=== PATIENT | female | born 1990 | race Caucasian/White ===

== ENCOUNTER → 2018-01-08 | Outpatient (CLI) | payer OTHER ==
[~2018-01-08] MED LIST: AMOCLA500 PO; AMOX500 PO; CODACE30 PO; HYDACE5 PO; RXCODACET PO; RXHYDACE PO
[2018-01-09 10:30] LABS: Source Vaginal/Cervical
== END | disposition home or self-care (01) ==
LOC: LAB 16:33 → LAB SHORT 16:33
PROVIDERS: Obstetrics & Gynecology
DX: Z36.89 Encounter for other specified antenatal screening (principal)
CPT/HCPCS: 87491; 87591; G0123

== ENCOUNTER → 2018-05-08 | Outpatient (CLI) | payer OTHER ==
[2018-05-08 17:13] LABS: Source, Urine Clean Catch
[2018-05-08 18:09] LABS: Bilirubin, Urine Neg (Neg); Blood, Urine Neg (Neg); Glucose Qualitative, Urine Neg (Neg); Ketones, Urine Neg (Neg); Leukocyte Esterase, Urine 1+ (Neg); Nitrite, Urine Pos (Neg); Protein, Urine Neg (Neg); Specific Gravity, Urine 1.005 (1.003-1.022); Urobilinogen, Urine NORM (Normal)
[2018-05-08 18:17] LABS: Appearance, Urine Clear (Clear); Color, Urine Yellow (P-Yellow)
[2018-05-08 18:18] LABS: Bacteria Few /hpf; Red Blood Cells, Urine 0-2 /hpf (0-2); Squamous Epithelial Cells Mod /hpf (Few)
== END | disposition home or self-care (01) ==
LOC: LAB SHORT 16:53 → LAB 16:53
PROVIDERS: Obstetrics & Gynecology
DX: R82.99 Other abnormal findings in urine (principal)
CPT/HCPCS: 81001; 87086

== ENCOUNTER → 2018-05-14 | Outpatient (CLI) | payer OTHER ==
[2018-05-14 11:35] LABS: Source, Urine Clean Catch
[2018-05-14 13:06] LABS: Appearance, Urine Clear (Clear); Bilirubin, Urine Neg (Neg); Blood, Urine Neg (Neg); Color, Urine Yellow (P-Yellow); Glucose Qualitative, Urine Neg (Neg); Ketones, Urine Neg (Neg); Leukocyte Esterase, Urine 1+ (Neg); Nitrite, Urine Pos (Neg); Protein, Urine Neg (Neg); Specific Gravity, Urine 1.005 (1.003-1.022); Urobilinogen, Urine NORM (Normal)
[2018-05-14 13:22] LABS: Bacteria Few /hpf; Red Blood Cells, Urine Not Seen /hpf (0-2); Squamous Epithelial Cells Few /hpf (Few)
== END ==
LOC: LAB SHORT 11:33 → LAB 11:33
PROVIDERS: Obstetrics & Gynecology
DX: R82.99 Other abnormal findings in urine (principal)
CPT/HCPCS: 81001; 87086

== ENCOUNTER 2018-06-15 04:58 | Observation (INO) | payer OTHER ==
[~2018-06-15] VITALS: Ht 157.5 cm; Wt 99.8 kg
[2018-06-15 05:38] LABS: BASOPHILS ABSOLUTE AUTO 0.03 K/mm3 (0.00-0.23); BASOPHILS PERCENT AUTO 0 % (0-2); EOSINOPHILS ABSOLUTE AUTO 0.13 K/mm3 (0.00-0.68); EOSINOPHILS PERCENT AUTO 1 % (0-6); Hematocrit 34.2 % (33.0-51.0); Hemoglobin 11.3 g/dL (11.5-16.0); IMMATURE GRAN ABSOLUTE AUTO 0.06 K/mm3 (0.00-0.10); IMMATURE GRAN PERCENT AUTO 1 % (0-1); LYMPHOCYTES PERCENT AUTO 22 % (21-46); MONOCYTES ABSOLUTE AUTO 0.91 K/mm3 (0.16-1.47); MONOCYTES PERCENT AUTO 7 % (4-13); Mean Corpuscular HGB 28.8 pg (26.0-34.0); Mean Corpuscular Volume 87 fL (80-100); Mean Platelet Volume 9.8 fL (9.1-12.4); NEUTROPHILS ABSOLUTE AUTO 8.71 K/mm3 (1.96-9.15); NEUTROPHILS PERCENT AUTO 70 % (41-73); Platelet Count 374 K/mm3 (150-400); RDW Coefficient Variation 13.5 % (11.7-14.2); RDW Standard Deviation 42.6 fL (35.1-46.3); Red Blood Cell Count 3.93 M/mm3 (3.80-5.20); White Blood Cell Count 12.54 K/mm3 (4.00-11.30)
[2018-06-15 05:58] LABS: Alanine Aminotransfer (ALT/SGP 20 U/L (12-78); Albumin, Blood 2.7 g/dL (3.4-5.0); Albumin/Globulin Ratio 0.6 (0.8-1.8); Alk Phos 152 U/L (50-136); Amylase, Blood 47 U/L (25-115); Anion Gap 10 mmol/L (6-16); Aspartate Aminotrans (AST/SGOT 15 U/L (12-37); Bilirubin, Total 0.3 mg/dL (0.1-1.0); Blood Urea Nitrogen 4 mg/dL (8-24); Bun/Creatinine Ratio 6.4 (12.0-20.0); CO2, Blood 22 mmol/L (21-32); Calcium, Blood 9.2 mg/dL (8.5-10.1); Chloride, Blood 109 mmol/L (98-108); Creatinine, Blood 0.62 mg/dL (0.40-1.00); Globulin, Blood 4.2 g/dL (2.2-4.0); Glomerular Filtration Rate >60 (60-); Glucose, Blood 86 mg/dL (70-99); Potassium, Blood 3.4 mmol/L (3.5-5.5); Sodium, Blood 141 mmol/L (136-145); Total Protein, Blood 6.9 g/dL (6.4-8.2); Uric Acid, Blood 3.9 mg/dL (2.6-6.0)
[2018-06-15] MEDS ORDERED: METF500C PO (10:08)
[2018-06-15] MEDS ORDERED: BUSP5 PO (11:15)
[2018-06-15] MEDS ORDERED: EXPECTA PRENAT1 EACH PO (11:16)
[2018-06-15 19:05] LABS: Amylase, Blood 42 U/L (25-115)
[2018-06-16 06:13] LABS: BASOPHILS ABSOLUTE AUTO 0.02 K/mm3 (0.00-0.23); BASOPHILS PERCENT AUTO 0 % (0-2); EOSINOPHILS ABSOLUTE AUTO 0.06 K/mm3 (0.00-0.68); EOSINOPHILS PERCENT AUTO 1 % (0-6); Hematocrit 29.8 % (33.0-51.0); Hemoglobin 9.6 g/dL (11.5-16.0); IMMATURE GRAN ABSOLUTE AUTO 0.03 K/mm3 (0.00-0.10); IMMATURE GRAN PERCENT AUTO 0 % (0-1); LYMPHOCYTES ABSOLUTE AUTO 1.75 K/mm3 (0.84-5.20); LYMPHOCYTES PERCENT AUTO 17 % (21-46); MONOCYTES ABSOLUTE AUTO 0.69 K/mm3 (0.16-1.47); MONOCYTES PERCENT AUTO 7 % (4-13); Mean Corpuscular HGB 28.8 pg (26.0-34.0); Mean Corpuscular HGB Conc 32.2 g/dL (31.5-36.5); Mean Platelet Volume 9.8 fL (9.1-12.4); NEUTROPHILS ABSOLUTE AUTO 7.75 K/mm3 (1.96-9.15); NEUTROPHILS PERCENT AUTO 75 % (41-73); Platelet Count 268 K/mm3 (150-400); RDW Coefficient Variation 13.3 % (11.7-14.2); RDW Standard Deviation 43.6 fL (35.1-46.3); Red Blood Cell Count 3.33 M/mm3 (3.80-5.20)
[2018-06-16 06:15] LABS: Mean Corpuscular Volume 90 fL (80-100)
[2018-06-16 06:31] LABS: Alanine Aminotransfer (ALT/SGP 19 U/L (12-78); Albumin, Blood 2.2 g/dL (3.4-5.0); Albumin/Globulin Ratio 0.6 (0.8-1.8); Alk Phos 141 U/L (50-136); Amylase, Blood 42 U/L (25-115); Anion Gap 9 mmol/L (6-16); Aspartate Aminotrans (AST/SGOT 17 U/L (12-37); Bilirubin, Total 0.5 mg/dL (0.1-1.0); Blood Urea Nitrogen 3 mg/dL (8-24); Bun/Creatinine Ratio 5.2 (12.0-20.0); CO2, Blood 24 mmol/L (21-32); Calcium, Blood 8.1 mg/dL (8.5-10.1); Chloride, Blood 107 mmol/L (98-108); Creatinine, Blood 0.57 mg/dL (0.40-1.00); Globulin, Blood 3.6 g/dL (2.2-4.0); Glomerular Filtration Rate >60 (60-); Glucose, Blood 71 mg/dL (70-99); Potassium, Blood 3.2 mmol/L (3.5-5.5); Sodium, Blood 140 mmol/L (136-145); Total Protein, Blood 5.8 g/dL (6.4-8.2)
[2018-06-21] MEDS ORDERED: Aspir 8181 MG PO (02:00)
[2018-06-21] MEDS ORDERED: POTA8 PO (02:00)
== END 2018-06-16 11:45 | disposition home or self-care (01) ==
LOC: OBS 04:58 → BC 04:59 → OBS 08:14 → BC 08:15
PROVIDERS: Obstetrics & Gynecology
DX: O99.612 Diseases of the digestive system complicating pregnancy, second trimester (principal); K80.00 Calculus of gallbladder with acute cholecystitis without obstruction; O99.213 Obesity complicating pregnancy, third trimester; E66.9 Obesity, unspecified; O24.419 Gestational diabetes mellitus in pregnancy, unspecified control; Z87.891 Personal history of nicotine dependence; Z88.0 Allergy status to penicillin; Z79.899 Other long term (current) drug therapy; Z3A.34 34 weeks gestation of pregnancy; Z68.34 Body mass index [BMI] 34.0-34.9, adult
CPT/HCPCS: 36415; 59025; 76705; 80053; 81003; 82150; 82947; 83690; 84550; 85025; 96361; 96374; 96375; 96376; 99213; C9113; G0378; J0694; J0697; J1170; J2270; J2405; J3010; J7120

== ENCOUNTER 2018-06-27 13:14 | Inpatient (IN) | payer OTHER ==
[~2018-06-27] VITALS: Ht 157.5 cm; Wt 92.5 kg
[~2018-06-27 13:14] MED LIST changes: +Aspir 8181 MG PO; +BUSP5 PO; +EXPECTA PRENAT1 EACH PO; +METF500C PO; +POTA8 PO
[2018-06-29] MEDS ORDERED: IRON150C (10:12)
[2018-06-29] MEDS ORDERED: URSO300 PO (10:13)
[2018-07-01 13:46] LABS: BASOPHILS ABSOLUTE AUTO 0.01 K/mm3 (0.00-0.23); BASOPHILS PERCENT AUTO 0 % (0-2); EOSINOPHILS ABSOLUTE AUTO 0.06 K/mm3 (0.00-0.68); EOSINOPHILS PERCENT AUTO 1 % (0-6); Hematocrit 35.4 % (33.0-51.0); Hemoglobin 11.2 g/dL (11.5-16.0); IMMATURE GRAN ABSOLUTE AUTO 0.03 K/mm3 (0.00-0.10); IMMATURE GRAN PERCENT AUTO 0 % (0-1); LYMPHOCYTES ABSOLUTE AUTO 1.79 K/mm3 (0.84-5.20); LYMPHOCYTES PERCENT AUTO 21 % (21-46); MONOCYTES ABSOLUTE AUTO 0.53 K/mm3 (0.16-1.47); MONOCYTES PERCENT AUTO 6 % (4-13); Mean Corpuscular HGB 28.3 pg (26.0-34.0); Mean Corpuscular HGB Conc 31.6 g/dL (31.5-36.5); Mean Corpuscular Volume 89 fL (80-100); NEUTROPHILS ABSOLUTE AUTO 6.27 K/mm3 (1.96-9.15); NEUTROPHILS PERCENT AUTO 72 % (41-73); Platelet Count 373 K/mm3 (150-400); RDW Coefficient Variation 13.4 % (11.7-14.2); Red Blood Cell Count 3.96 M/mm3 (3.80-5.20); White Blood Cell Count 8.69 K/mm3 (4.00-11.30)
[2018-07-01 14:00] LABS: Alanine Aminotransfer (ALT/SGP 26 U/L (12-78); Albumin, Blood 2.6 g/dL (3.4-5.0); Albumin/Globulin Ratio 0.6 (0.8-1.8); Alk Phos 225 U/L (50-136); Anion Gap 12 mmol/L (6-16); Aspartate Aminotrans (AST/SGOT 16 U/L (12-37); Bilirubin, Total 0.4 mg/dL (0.1-1.0); Blood Urea Nitrogen 4 mg/dL (8-24); CO2, Blood 21 mmol/L (21-32); Calcium, Blood 9.3 mg/dL (8.5-10.1); Chloride, Blood 108 mmol/L (98-108); Creatinine, Blood 0.57 mg/dL (0.40-1.00); Globulin, Blood 4.4 g/dL (2.2-4.0); Glomerular Filtration Rate >60 (60-); Glucose, Blood 122 mg/dL (70-99); Potassium, Blood 3.5 mmol/L (3.5-5.5); Sodium, Blood 141 mmol/L (136-145)
[2018-07-03 05:55] LABS: Hematocrit 31.6 % (33.0-51.0); Hemoglobin 10.3 g/dL (11.5-16.0); Mean Corpuscular HGB Conc 32.6 g/dL (31.5-36.5); Mean Corpuscular Volume 89 fL (80-100); Mean Platelet Volume 9.8 fL (9.1-12.4); Platelet Count 272 K/mm3 (150-400); RDW Coefficient Variation 13.6 % (11.7-14.2); RDW Standard Deviation 44.5 fL (35.1-46.3); Red Blood Cell Count 3.55 M/mm3 (3.80-5.20); White Blood Cell Count 11.26 K/mm3 (4.00-11.30)
[2018-07-04 06:03] LABS: Alanine Aminotransfer (ALT/SGP 15 U/L (12-78); Albumin, Blood 2.2 g/dL (3.4-5.0); Albumin/Globulin Ratio 0.6 (0.8-1.8); Alk Phos 146 U/L (50-136); Anion Gap 9 mmol/L (6-16); Aspartate Aminotrans (AST/SGOT 14 U/L (12-37); Bilirubin, Total 0.2 mg/dL (0.1-1.0); Blood Urea Nitrogen 9 mg/dL (8-24); Bun/Creatinine Ratio 14.5 (12.0-20.0); CO2, Blood 24 mmol/L (21-32); Calcium, Blood 8.5 mg/dL (8.5-10.1); Chloride, Blood 109 mmol/L (98-108); Creatinine, Blood 0.62 mg/dL (0.40-1.00); Globulin, Blood 3.7 g/dL (2.2-4.0); Glomerular Filtration Rate >60 (60-); Glucose, Blood 79 mg/dL (70-99); Potassium, Blood 3.1 mmol/L (3.5-5.5); Sodium, Blood 142 mmol/L (136-145); Total Protein, Blood 5.9 g/dL (6.4-8.2)
[2018-07-05 17:00] LABS: BASOPHILS ABSOLUTE AUTO 0.06 K/mm3 (0.00-0.23); BASOPHILS PERCENT AUTO 1 % (0-2); EOSINOPHILS ABSOLUTE AUTO 0.34 K/mm3 (0.00-0.68); EOSINOPHILS PERCENT AUTO 4 % (0-6); Hematocrit 33.8 % (33.0-51.0); Hemoglobin 10.9 g/dL (11.5-16.0); IMMATURE GRAN ABSOLUTE AUTO 0.03 K/mm3 (0.00-0.10); IMMATURE GRAN PERCENT AUTO 0 % (0-1); LYMPHOCYTES ABSOLUTE AUTO 2.12 K/mm3 (0.84-5.20); LYMPHOCYTES PERCENT AUTO 23 % (21-46); MONOCYTES PERCENT AUTO 7 % (4-13); Mean Corpuscular HGB 29.1 pg (26.0-34.0); Mean Corpuscular HGB Conc 32.2 g/dL (31.5-36.5); Mean Corpuscular Volume 90 fL (80-100); Mean Platelet Volume 9.8 fL (9.1-12.4); NEUTROPHILS ABSOLUTE AUTO 5.92 K/mm3 (1.96-9.15); NEUTROPHILS PERCENT AUTO 65 % (41-73); Platelet Count 361 K/mm3 (150-400); RDW Coefficient Variation 13.9 % (11.7-14.2); RDW Standard Deviation 46.1 fL (35.1-46.3); Red Blood Cell Count 3.75 M/mm3 (3.80-5.20); White Blood Cell Count 9.07 K/mm3 (4.00-11.30)
[2018-07-05 17:31] LABS: Alanine Aminotransfer (ALT/SGP 18 U/L (12-78); Albumin, Blood 2.5 g/dL (3.4-5.0); Albumin/Globulin Ratio 0.6 (0.8-1.8); Alk Phos 143 U/L (50-136); Anion Gap 9 mmol/L (6-16); Aspartate Aminotrans (AST/SGOT 13 U/L (12-37); Bilirubin, Total 0.3 mg/dL (0.1-1.0); Blood Urea Nitrogen 12 mg/dL (8-24); Bun/Creatinine Ratio 18.2 (12.0-20.0); CO2, Blood 25 mmol/L (21-32); Calcium, Blood 9.4 mg/dL (8.5-10.1); Chloride, Blood 106 mmol/L (98-108); Creatinine, Blood 0.66 mg/dL (0.40-1.00); Globulin, Blood 4.2 g/dL (2.2-4.0); Glomerular Filtration Rate >60 (60-); Glucose, Blood 76 mg/dL (70-99); Potassium, Blood 4.2 mmol/L (3.5-5.5); Sodium, Blood 140 mmol/L (136-145); Total Protein, Blood 6.7 g/dL (6.4-8.2)
[2018-07-06] MEDS ORDERED: Percocet 5-3251 EACH PO (15:21)
[2018-07-06] MEDS ORDERED: IBUP800 PO (15:21)
[2018-07-06] MEDS ORDERED: NIFE10 PO (15:23)
[2018-07-06] MEDS ORDERED: LABE200 PO (15:24)
== END 2018-07-06 15:55 | disposition home or self-care (01) | DRG 765 ==
LOC: BC 07-02 06:11
PROVIDERS: Obstetrics & Gynecology
PROC: 10D00Z1 Extraction of Products of Conception, Low, Open Approach (ICD-10-PCS; principal; 2018-07-02 07:30)
PROC: 0U570ZZ Destruction of Bilateral Fallopian Tubes, Open Approach (ICD-10-PCS; 2018-07-02 07:30)
DX: O26.62 Liver and biliary tract disorders in childbirth (principal); K83.1 Obstruction of bile duct; Z37.0 Single live birth; O16.4 Unspecified maternal hypertension, complicating childbirth; Z3A.37 37 weeks gestation of pregnancy; Z87.891 Personal history of nicotine dependence; O99.62 Diseases of the digestive system complicating childbirth; O24.419 Gestational diabetes mellitus in pregnancy, unspecified control
CPT/HCPCS: 36415; 80053; 82947; 85025; 85027; 86850; 86900; 86901; J0360; J0690; J1885; J2405; J2590; J2765; J7120

== ENCOUNTER 2019-10-06 18:49 | Emergency (ER) | payer OTHER ==
[~2019-10-06] VITALS: Ht 157.5 cm; Wt 75.3 kg
[~2019-10-06 18:49] MED LIST changes: +IBUP800 PO; +IRON150C; +LABE200 PO; +NIFE10 PO; +Percocet 5-3251 EACH PO; +URSO300 PO
== END 2019-10-06 22:30 | disposition home or self-care (01) ==
LOC: ER 18:49
DX: G43.909 Migraine, unspecified, not intractable, without status migrainosus (principal); Z88.0 Allergy status to penicillin; Z88.1 Allergy status to other antibiotic agents; Z88.8 Allergy status to other drugs, medicaments and biological substances; Z79.899 Other long term (current) drug therapy; Z87.891 Personal history of nicotine dependence
CPT/HCPCS: 96361; 96374; 96375; 99283-25; J1100; J1200; J1885; J2765; J7120

== ENCOUNTER 2025-02-18 10:17 | Day surgery (SDC) | payer OTHER ==
[~2025-02-18] VITALS: Ht 157.5 cm; Wt 78.3 kg
[~2025-02-18 10:17] MED LIST changes: +CeFAZolin Sodium 2,000 MG VIAL ONE; +FentaNYL Citrate 50 MCG/ML 2 ML Injection ONE; +Lactated Ringer's 1,000 ML IV ONE; +Midazolam HCl 1MG / ML 2ML Vial ONE; +Rocuronium Bromide 10 MG/ML 5ML Injection IV ONE; +Tranexamic Acid 100 ML IV ONE; +propofoL 20 ML IV ONE
[2025-02-18] MEDS ORDERED: ESCI20 PO (10:41)
[2025-02-18] MEDS ORDERED: CLON.5 PO (10:42)
[2025-02-18] MEDS ORDERED: Atarax10 MG PO (10:43)
[2025-02-18] MEDS ORDERED: Lactated Ringer's 1,000 ML IV ONE ×2 (11:01→14:02)
[2025-02-18] MEDS ORDERED: EPINEPhrine HCl 1 MG/ML 1ML Amp ONE (11:52)
--- NOTE | 2025-02-18 12:18 | NUR ---
02/18/25 1218 Gina Orozco PT EXTREMELY ANXIOUS. PT'S FRIEND JEAN CARLOS, AT SIDE OF BED. DR. SAGASTUME WAS NOTIFIED, AND THEY WILL BE PERFORMING THE BLOCK IN THE OR. [address] IV IN, PT MOVED HER HAND IMMEDIATELY AFTER GUME DELAROSA ATTEMPTED THE FIRST TRY.
[2025-02-18] MEDS ORDERED: Ketorolac Tromethamine 30mg Vial ONE (12:37)
[2025-02-18] MEDS ORDERED: Dexamethasone Sod Phos 10 MG/ML 1ML VIAL ONE (12:37)
[2025-02-18] MEDS ORDERED: Ondansetron HCl 2 MG / ML 2ML Vial ONE (12:37)
[2025-02-18] MEDS ORDERED: Rocuronium Bromide 10 MG/ML 5ML Injection IV ONE (12:48)
--- NOTE | 2025-02-18 14:04 | NUR ---
02/18/25 1404 Kimberlyn Hannon 1MG/ML EPI IN 3,000 LITER LR BAG. 3 BAGS TOTAL, 3MG/3ML EPI TOTAL FOR FIRST THREE BAGS OF LR USING THE SCOPE.
[2025-02-18] MEDS ORDERED: Neostigmine Methylsulfate 5MG/5ML SYR ONE (14:14)
[2025-02-18] MEDS ORDERED: Glycopyrrolate 0.2 MG/ML 5ML VIAL ONE (14:14)
[2025-02-18] MEDS ORDERED: Bupivacaine 0.5% HCl 5 MG/ML 30MLVIAL ONE (14:19)
--- NOTE | 2025-02-18 14:51 | NUR ---
02/18/25 1451 Emmie Beard PT TO PACU, LYING ON RIGHT SIDE. DROWSY AND RESTLESS. RECEIVED REPORT. RN X2 AT BEDSIDE REASSURING AND ATTEMPTING TO ORIENT PATIENT. REDNESS NOTED TO RIGHT UPPER LEG "FROM BOVIE PAD" PER REPORT. SEIZURE PADS APPLIED TO RAILS TO PROTECT PATIENT FROM HITTING THEM. PATIENT CURRENTLY SUPINE AND RESTING WITH EYES CLOSED. LEFT TOES PINK, WARM AND DRY. LEFT TOES CAP REFILL <3 SECONDS. DRESSING ON KNEE CDI
[2025-02-18] MEDS ORDERED: FentaNYL Citrate 50 MCG/ML 2 ML Injection ONE (14:56)
[2025-02-18] MEDS ORDERED: HYDROmorphone HCl/Pf 1MG SYR ONE ×3 (15:11→17:29)
--- NOTE | 2025-02-18 15:36 | NUR ---
02/18/25 1536 Emmie Beard PT STATES "IT SHOULD NOT HURT THIS BAD. IT'S THROBBING." RN AT BEDSIDE REASSURING. PATIENT RATES PAIN 07/02. GUME BOWIE TALKING TO DR. SAGASTUME VIA PHONE
[2025-02-18] MEDS ORDERED: LORazepam 2 MG/ML 1ML Injection IV PRN (16:00)
[2025-02-18 18:10] VITALS: BP 116/88
== END 2025-02-18 16:20 | disposition home or self-care (01) ==
LOC: ORSCSDS 10:17
PROVIDERS: Orthopaedic Surgery Sports Medicine
PROC: 0MRP47Z Replacement of Left Knee Bursa and Ligament with Autologous Tissue Substitute, Percutaneous Endoscopic Approach (ICD-10-PCS; principal; 2025-02-18 11:45)
DX: S83.512A Sprain of anterior cruciate ligament of left knee, initial encounter (principal); X50.1XXA Overexertion from prolonged static or awkward postures, initial encounter; Y93.01 Activity, walking, marching and hiking; I10 Essential (primary) hypertension; F41.9 Anxiety disorder, unspecified; F32.A Depression, unspecified; Z79.899 Other long term (current) drug therapy
CPT/HCPCS: C1713; C1776; C1889; J0171; J0690; J1100; J1171; J1885; J2060; J2250; J2405; J2704; J2710; J3010; J7120